=== PATIENT | female | born 1960 | race African-American/Black ===

== ENCOUNTER 2025-07-12 14:57 | Outpatient (AMB) | payer MEDICARE, MEDICAID, SELFPAY ==
--- NOTE | 2025-07-12 14:34 | A.OFFPC_ITS ---
Vital Signs 07/12/25 15:04 Height 5 ft 1 in Weight 186 lb BMI 35.1 BP 116/74 Blood Pressure Location Lt brachial Position Sitting Respiration 16 Pulse 86 Pulse Source Pulse Oximeter Temp 96.8 F Temp Source Temporal Artery Scan Pulse Oximetry (%) 95 Oxygen Delivery Method Room Air Intake Visit Reasons: Re-establish care Chief Cardiopulmonary Technologist Required: No Accompanied by: Self / Same As Patient Allergies celecoxib (From Celebrex) Allergy (Intermediate, Verified 07/12/25 15:07) hives/itching mushroom Allergy (Intermediate, Verified 07/12/25 15:07) hives/itching naproxen (From Naprosyn) Allergy (Intermediate, Verified 07/12/25 15:07) hives/itching NSAIDS (Non-Steroidal Anti-Inflamma Allergy (Intermediate, Verified 07/12/25 15:07) hives/itching tomato Allergy (Intermediate, Verified 07/12/25 15:07) hives/itching Medication List - Last Reconciled 07/12/25 by Mary Jane Nguyen MD albuterol sulfate 90 mcg/actuation (Ventolin HFA) 2 puffs inhalation Q6H PRN amlodipine 10 mg PO DAILY cholecalciferol (vitamin D3) 1,250 mcg PO QWEEK fluticasone furoate-vilanterol 100-25 mcg/dose (Breo Ellipta) 1 ea inhalation D AILY magnesium 250 mg PO DAILY oxycodone 30 mg PO QID PRN topiramate (Topamax) 300 mg PO DAILY Tobacco use date assessed: 07/12/25 Fall risk assessment: 2 + Falls in past year Last assessed Fall Risk: 07/12/25 Dental Screening Dental Screen Date: 07/12/25 Did you have a dental visit in the last 12 months?: Yes Did you have a dental problem in the last 6 months where you did not have access to dental care?: No Was dental information given to patient?: Patient has dentist HPI HPI Comments History of Present Illness Details The patient is a 64-year-old female presenting [facility]. Right knee fracture: Initial ER visit at [facility] in January suggested arthritis. February MRI confirmed fracture after she saw [facility]. Pain persists but not as intense; stiffness noted. Epistaxis: Nosebleeds occurred in January, lasted a week. No further episodes. Asthma with recent exacerbation: Reports of wheezing, difficulty breathing, and tightness. Medications include Ventolin, Breo, and nebulizer. Lacks nebulizer solution. 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 No current symptoms reported. Myofascial pain- established with Dr. Marie at [facility] Anemia- due for repeat cbc HTN-stable Sleep apnea- stable Vitamin d deficiency- uses vitamin d supplement Social History: - Has a supportive family and a new pupp y for companionship Family History: - NONE REPORTED Review of Systems - Musculoskeletal: per hpi - Respiratory: Reports wheezing , chest tightness - General: occasional fatigue Physical Exam - General appearance- NAD - Ear- Right ear cerumen, no erythema- l eft tympanic membrane - Throat- Normal appearance - Chest: wheezing bilaterally - Card: normal s1, s2 - Abdominal: SNTND, +BS Assessment and Plan 1. Asthma exacerbation - Prescribe prednisone taper, continue B reo, and use nebs four times per day 2. . Previous thymic carcinoma - Follow scheduled surveillance plan cirilo Dr. Lopez- thoracic surgeon at [facility] 3. Myofascial pain-continue current rona men 4. HTN- continue amlodipine 5. Anemia-check iron profile, CBC 6. Vitamin d deficiency- obtain bone den sity, check vitamin d levels Discussion Notes We addressed the patient's asthma, discussing the need prednisone taper and neb solution. The patient's experiences with recurrent epistaxis led to discussing home humidity management. Patient Instructions - Use medications as prescribed for asth ma management. - If nosebleeds occur, increase the humi dity in your home. - update office if persistent symptoms a fter prednisone taper [facility] Medical History (Updated 07/12/25 @ 17:18 by Mary Jane Nguyen MD) Thymic carcinoma Myofascial muscle pain Vitamin D deficiency Primary hypertension Asthma, moderate persistent Anemia Sleep apnea Social History Housing: Apartment Patient Tobacco Use Status: Former Tobacco user Years Smoked: quit 2004 service: No Current occupational status: other Questionnaire AUDIT C Alcohol Use Questionnaire (AUDIT-C) 1. How often do you have a drink containing alcohol?: Never 3. How often do you have six or more drinks on one occasion?: Never Total Score: 0 Physical exam (Primary Care) Vital Signs: Last Vital Signs Temp 96.8 F 07/12/25 15:04 Pulse 86 07/12/25 15:04 Resp 16 07/12/25 15:04 BP 116/74 07/12/25 15:04 Pulse Ox 95 07/12/25 15:04 Oxygen Delivery Method Room Air 07/12/25 15:04 BMI result Body Mass Index 35.1 Tobacco/Smoking Status: Tobacco use Status Tobacco use date assessed 07/12/25 07/12/25 14:36 Patient Tobacco Use Status Former Tobacco user 07/12/25 15:14 Coding Level of Care Code Est Pt Level 4 (50836) Complex EM visit Add On G2211 Diagnoses Moderate persistent asthma with acute exacerbation J45.41 Asthma complication type: with acute exacerbation Myofascial muscle pain M79.18 Primary hypertension I10 Anemia, unspecified type D64.9 Anemia type: unspecified type Vitamin D deficiency E55.9 Thymic carcinoma C37 Assessment & Plan Assessment & Plan (1) Asthma, moderate persistent: Code(s): J45.40 - Moderate persistent asthma, uncomplicated Category: Medical Qualifiers: Asthma complication type: with acute exacerbation Qualified Code(s): J45.41 - Moderate persistent asthma with (acute) exacerbation (2) Myofascial muscle pain: Code(s): M79.18 - Myalgia, other site Category: Medical (3) Primary hypertension: Code(s): I10 - Essential (primary) hypertension Category: Medical (4) Anemia: Code(s): D64.9 - Anemia, unspecified Category: Medical Qualifiers: Anemia type: unspecified type Qualified Code(s): D64.9 - Anemia, unspecified (5) Vitamin D deficiency: Code(s): E55.9 - Vitamin D deficiency, unspecified Category: Medical (6) Thymic carcinoma: Code(s): C37 - Malignant neoplasm of thymus Category: Medical Plan Plan - As outlined in assessment and plan above - Complete prednisone taper, use nebulizer solution - get fasting labs Orders: Orders Comprehensive Met. Panel Today D64.9 - Anemia, unspecified, E55.9 - Vitamin D deficiency, unspecified, G47.30 - Sleep apnea, unspecified, I10 - Essential (primary) hypertension, J45.40 - Moderate persistent asthma, uncomplicated Ferritin Today D64.9 - Anemia, unspecified, E55.9 - Vitamin D deficiency, unspecified, G47.30 - Sleep apnea, unspecified, I10 - Essential (primary) hypertension, J45.40 - Moderate persistent asthma, uncomplicated IRON PROFILE Today D64.9 - Anemia, unspecified, E55.9 - Vitamin D deficiency, unspecified, G47.30 - Sleep apnea, unspecified, I10 - Essential (primary) hypertension, J45.40 - Moderate persistent asthma, uncomplicated Magnesium Today D64.9 - Anemia, unspecified, E55.9 - Vitamin D deficiency, unspecified, G47.30 - Sleep apnea, unspecified, I10 - Essential (primary) hypertension, J45.40 - Moderate persistent asthma, uncomplicated Vitamin D 25-OH Total Today D64.9 - Anemia, unspecified, E55.9 - Vitamin D d eficiency, unspecified, G47.30 - Sleep apnea, unspecified, I10 - Essential (primary) hypertension, J45.40 - Moderate persistent asthma, uncomplicated Complete Blood Count Auto Diff Today D64.9 - Anemia, unspecified, E55.9 - Vitamin D deficiency, unspecified, G47.30 - Sleep apnea, unspecified, I10 - Essential (primary) hypertension, J45.40 - Moderate persistent asthma, un complicated Microalbumin, Random (w Creat) Today D64.9 - Anemia, unspecified, E55.9 - Vitamin D deficiency, unspecified, G47.30 - Sleep apnea, unspecified, I10 - Essential (primary) hypertension, J45.40 - Moderate persistent asthma, uncomplicated Vitamin B12 Today D64.9 - Anemia, unspecified, E55.9 - Vitamin D deficiency, unspecified, G47.30 - Sleep apnea, unspecified, I10 - Essential (primary) hypertension, J45.40 - Moderate persistent asthma, uncomplicated XR DEXA axial skeleton Today Z78.0 - Asymptomatic menopausal state Medications: New prednisone 4 tabs x 3 days, 3 tabs x 3 days, 2 tabs x 3 days, 1 tab x 3 days 30 tabs 0RF albuterol sulfate 2.5 mg (3 mL) inhalation Q4-6H PRN 180 mL 11RF shortness of breath or wheezing mupirocin 2% (Centany) 1 appl topical TID 22 grams 3RF
[2025-07-12 15:04] VITALS: BP 116/74; PULSE 86; RESP 16; TEMP 36; O2SAT 95; BMI 35.1
== END 2025-07-12 16:02 | disposition home or self-care (01) ==
LOC: HO.HMCHD 14:58
PROVIDERS: PCP Internal Medicine; Visit Provider Internal Medicine
DX: J45.41 Moderate persistent asthma with (acute) exacerbation (principal); M79.18 Myalgia, other site; I10 Essential (primary) hypertension; D64.9 Anemia, unspecified; E55.9 Vitamin D deficiency, unspecified; C37 Malignant neoplasm of thymus

== ENCOUNTER → 2025-07-12 14:57 | Outpatient (BNVA) | payer MEDICARE, MEDICAID, SELFPAY | PROVIDERS: PCP Internal Medicine; Visit Provider Internal Medicine | DX: Z76.89 Persons encountering health services in other specified circumstances (principal); J45.41 Moderate persistent asthma with (acute) exacerbation; M79.18 Myalgia, other site; I10 Essential (primary) hypertension; D64.9 Anemia, unspecified; E55.9 Vitamin D deficiency, unspecified; C37 Malignant neoplasm of thymus; G47.30 Sleep apnea, unspecified | CPT/HCPCS: 99212 ==

== ENCOUNTER 2025-08-29 11:55 | Outpatient (AMB) | payer MEDICARE, MEDICAID, SELFPAY ==
[2025-08-29 12:01] VITALS: BP 139/64; PULSE 86; TEMP 36.6; O2SAT 97; BMI 34.2
--- NOTE | 2025-08-29 12:01 | A.OFFPC_ITS ---
Vital Signs 08/29/25 12:01 Height 5 ft 1 in Weight 181 lb BMI 34.2 BP 139/64 Blood Pressure Location Lt brachial Position Sitting Pulse 86 Pulse Source Pulse Oximeter Temp 97.9 F Temp Source Oral Pulse Oximetry (%) 97 Oxygen Delivery Method Room Air Intake Visit Reasons: EP - Right Knee Discomfort, Edema Accompanied by: Son Allergies celecoxib (From Celebrex) Allergy (Intermediate, Verified 08/29/25 12:02) hives/itching mushroom Allergy (Intermediate, Verified 08/29/25 12:02) hives/itching naproxen (From Naprosyn) Allergy (Intermediate, Verified 08/29/25 12:02) hives/itching NSAIDS (Non-Steroidal Anti-Inflamma Allergy (Intermediate, Verified 08/29/25 12:02) hives/itching tomato Allergy (Intermediate, Verified 08/29/25 12:02) hives/itching Tobacco use date assessed: 07/12/25 Dental Screening Dental Screen Date: 07/12/25 HPI HPI Comments History of Present Illness Details History of Present Illness The patient is a 65 year old female with a past medical history of asthma, thymic carcinoma, hypertension, and sleep apnea presenting for evaluation of unilateral leg swelling and pain. - The patient's leg swelling began last week while she was on vacation. - Initially, the swelling was confined t o her knee, which caused difficulty walking - The swelling has since moved downwards into her lower leg. - She reports pain and a 'hot spot' feel ing in the back of her knee, with difficulty bending it and pain radiating all the way down her leg including the calf. - The patient describes a sensation like a 'rubber band' pulling in the back of her leg. - She recently traveled via a 1 hour and 27-minute plane ride to [place]. - She denies any personal or family hist ory of blood clots. - She denies any other prolonged periods of immobility. - Patient also reports mild shortness of breath, however is unsure if this is due to her underlying asthma and states this is not new. - She denies any chest pain. History of Knee Injury and Arthritis: - In January or February, the patient went to an emergency room for knee pain and was told she had arthritis based on an x-ray. - A subsequent MRI at an orthopedic clin ic revealed fracture. - The injury reportedly occurred when sh e heard a 'crack' while walking up stairs. - She was given a brace but found it dif ficult to use as it kept falling down. Review of Systems Constitutional: Negative for fevers, chills Respiratory: Reports mild shortness. Negative for cough wheezing Cardiac: Negative for chest pain. Reports RLE swelling Musculoskeletal: Reports right knee pain, right calf pain, and right lower extremity swelling. Skin: Negative for rash or wounds Neurological: Negative for numbness, weakness Physical Exam General Appearance: Normal appearance, well developed. No acute distress Head: Normocephalic, atraumatic Cardiac: RRR. No M/R/G Pulmonary: No respiratory distress. Speaking in full sentences. Ronchi noted in RUE, however improves with coughing. No wheezing. Musculoskeletal: Moving all extremities spontaneously and against gravity. +2 pitting edema noted in the RLE from the ankle to above the knee. No swelling or edema noted of the left leg. TTP of the calf. No erythema or open wounds noted. Negative Homans sign Mental Status: Alert and Oriented x 3 Psychiatric: Normal mood. Normal affect. [facility] Medical History (Updated 07/12/25 @ 17:18 by Mary Jane Nguyen MD) Thymic carcinoma Myofascial muscle pain Vitamin D deficiency Primary hypertension Asthma, moderate persistent Anemia Sleep apnea Family History (Updated 07/12/25 @ 17:23 by Mary Jane Nguyen MD) Son Cardiac defibrillator in place Social History Housing: Apartment Patient Tobacco Use Status: Former Tobacco user Years Smoked: quit 2004 service: No Current occupational status: other Physical exam (Primary Care) Vital Signs: Last Vital Signs Temp 97.9 F 08/29/25 12:01 Pulse 86 08/29/25 12:01 BP 139/64 08/29/25 12:01 Pulse Ox 97 08/29/25 12:01 Oxygen Delivery Method Room Air 08/29/25 12:01 BMI result Body Mass Index 34.2 Tobacco/Smoking Status: Tobacco use Status Tobacco use date assessed 07/12/25 08/29/25 12:05 Patient Tobacco Use Status Former Tobacco user 08/29/25 12:05 Coding Diagnoses Swelling of right lower extremity M79.89 Assessment & Plan Assessment & Plan (1) Swelling of right lower extremity: Code(s): M79.89 - Other specified soft tissue disorders Plan Assessment and Plan 1. Unilateral leg swelling and pain - The patient's presentation with acute unilateral right leg swelling, calf pain, and tenderness is concerning for a deep vein thrombosis (DVT) - While other differentials include complications from her prior knee fracture or arthritis, the radiation of pain and swelling to her calf would warrant a RLE ultrasound - A STAT ultrasound of the leg has been scheduled for today at [facility] at 2:30 pm to investigate for a blood clot. - Will follow up with patient regarding results and next steps - Advised prompt medical evaluation if she develops any chest pain or worsening shortness of breath from baseline. Patient was informed and verbally consented to the use of an ambient scribe for clinic note documentation during the visit. Orders: Orders US venous duplex LE RT Today M79.89 - Other specified soft tissue disorders
--- NOTE | 2025-08-29 13:24 | AM.OFFWIN_ITS ---
Intake Vital Signs 08/29/25 12:01 Height 5 ft 1 in Weight 181 lb BMI 34.2 BP 139/64 Blood Pressure Location Lt brachial Position Sitting Pulse 86 Pulse Source Pulse Oximeter Temp 97.9 F Temp Source Oral Pulse Oximetry (%) 97 Oxygen Delivery Method Room Air Intake Visit Reasons: EP - Right Knee Discomfort, Edema Patient Tobacco Use Status: Former Tobacco user Allergies celecoxib (From Celebrex) Allergy (Intermediate, Verified 08/29/25 12:02) hives/itching mushroom Allergy (Intermediate, Verified 08/29/25 12:02) hives/itching naproxen (From Naprosyn) Allergy (Intermediate, Verified 08/29/25 12:02) hives/itching NSAIDS (Non-Steroidal Anti-Inflamma Allergy (Intermediate, Verified 08/29/25 12:02) hives/itching tomato Allergy (Intermediate, Verified 08/29/25 12:02) hives/itching HPI HPI Comments History of Present Illness Details History of Present Illness The patient is a 65 year old female with a past medical history of asthma, thy fabrice carcinoma, hypertension, and sleep apnea presenting for evaluation of unilateral leg swelling and pain. - The patient's leg swelling began last week while she was on vacation. - Initially, the swelling was confined t o her knee, which caused difficulty walking - The swelling has since moved downwards into her lower leg. - She reports pain and a 'hot spot' feel ing in the back of her knee, with difficulty bending it and pain radiating all the way down her leg including the calf. - The patient describes a sensation like a 'rubber band' pulling in the back of her leg. - She recently traveled via a 1 hour and 27-minute plane ride to [place]. - She denies any personal or family hist ory of blood clots. - She denies any other prolonged periods of immobility. - Patient also reports mild shortness of breath, however is unsure if this is due to her underlying asthma and states this is not new. - She denies any chest pain. History of Knee Injury and Arthritis: - In January or February, the patient went to an emergency room for knee pain and was told she had arthritis based on an x-ray. - A subsequent MRI at an orthopedic clin ic revealed fracture. - The injury reportedly occurred when sh e heard a 'crack' while walking up stairs. - She was given a brace but found it dif ficult to use as it kept falling down. Review of Systems Constitutional: Negative for fevers, chills Respiratory: Reports mild shortness. Negative for cough wheezing Cardiac: Negative for chest pain. Reports RLE swelling Musculoskeletal: Reports right knee pain, right calf pain, and right lower extremity swelling. Skin: Negative for rash or wounds Neurological: Negative for numbness, weakness Physical Exam General Appearance: Normal appearance, well developed. No acute distress Head: Normocephalic, atraumatic Cardiac: RRR. No M/R/G Pulmonary: No respiratory distress. Speaking in full sentences. Ronchi noted in RUE, however improves with coughing. No wheezing. Musculoskeletal: Moving all extremities spontaneously and against gravity. +2 pitting edema noted in the RLE from the ankle to above the knee. No swelling or edema noted of the left leg. TTP of the calf. No erythema or open wounds noted. Negative Homans sign Mental Status: Alert and Oriented x 3 Psychiatric: Normal mood. Normal affect. [facility] Medical History (Updated 07/12/25 @ 17:18 by Mary Jane Nguyen MD) Thymic carcinoma Myofascial muscle pain Vitamin D deficiency Primary hypertension Asthma, moderate persistent Anemia Sleep apnea Family History (Updated 07/12/25 @ 17:23 by Mary Jane Nguyen MD) Son Cardiac defibrillator in place Social History Housing: Apartment Patient Tobacco Use Status: Former Tobacco user Years Smoked: quit 2004 service: No Current occupational status: other Physical Exam Vital Signs: Last Vital Signs Temp 97.9 F 08/29/25 12:01 Pulse 86 08/29/25 12:01 BP 139/64 08/29/25 12:01 Pulse Ox 97 08/29/25 12:01 Oxygen Delivery Method Room Air 08/29/25 12:01 BMI result Body Mass Index 34.2 Assessment & Plan Assessment & Plan (1) Swelling of right lower extremity: Code(s): M79.89 - Other specified soft tissue disorders Plan Assessment and Plan 1. Unilateral leg swelling and pain - The patient's presentation with acute unilateral right leg swelling, calf pain, and tenderness is concerning for a deep vein thrombosis (DVT) - While other differentials include complications from her prior knee fracture or arthritis, the radiation of pain and swelling to her calf would warrant a RLE ultrasound - A STAT ultrasound of the leg has been scheduled for today at [facility] at 2:30 pm to investigate for a blood clot. - Will follow up with patient regarding results and next steps - Advised prompt medical evaluation if she develops any chest pain or worsening shortness of breath from baseline. Patient was informed and verbally consented to the use of an ambient scribe for clinic note documentation during the visit. Orders: Orders US venous duplex LE RT Today M79.89 - Other specified soft tissue disorders Coding Level of Care Code Est Pt Level 3 (79348) Diagnoses Swelling of right lower extremity M79.89
== END 2025-08-29 13:00 | disposition home or self-care (01) ==
LOC: HO.HMCWIS 11:55
PROVIDERS: PCP Internal Medicine; Visit Provider Family Medicine
DX: M79.89 Other specified soft tissue disorders (principal)

== ENCOUNTER 2025-08-29 14:06 | Outpatient (REF) | payer MEDICARE, MEDICAID, SELFPAY ==
--- NOTE | ~2025-08-29 | US_ITS ---
EXAMINATION: US TRIPLEX LOWER EXTREMITY, RIGHT CLINICAL INFORMATION: M79.89 - Other specified soft tissue disorders COMPARISON: None available. TECHNIQUE: Color-flow triplex imaging with spectral analysis and compression Doppler were performed on the right lower extremity. FINDINGS: Respiratory variation, normal compression and augmented flow are noted throughout the right lower extremity. The visualized common femoral vein, greater saphenous vein, femoral vein, profunda femoral vein, popliteal vein and midcalf peroneal and posterior tibial venous segments show no evidence of deep venous thrombosis. Contralateral left common femoral vein is patent. Fluid collection in the right popliteal fossa with complex heterogeneous echogenic content measures 5.0 x 1.4 x 3.8 cm. No abnormal vascularity demonstrated with color Doppler evaluation. Soft tissue edema noted throughout the calf, mostly middle-distal segments. US/US venous duplex LE RT IMPRESSION: 1. No evidence of deep venous thrombosis involving the right lower extremity. 2. Soft tissue edema in the calf. 3. Complex appearing Jaquez's cyst measuring up to 5.0 cm. May be sequela from previous superimposed trauma or chronic inflammatory/infectious process. Electronically signed by: Leela Perez MD 08/29/2025 03:09 PM FIORELLA
== END 2025-08-29 14:07 | disposition home or self-care (01) ==
LOC: HO.US 14:06
PROVIDERS: PCP Internal Medicine; Visit Provider Family Medicine
DX: M79.89 Other specified soft tissue disorders (principal)
CPT/HCPCS: 93971; 99212

== ENCOUNTER → 2025-08-29 14:17 | Outpatient (BNV) | payer MEDICARE, MEDICAID, SELFPAY | PROVIDERS: PCP Internal Medicine; Visit Provider Radiology Body Imaging | DX: R60.0 Localized edema (principal) | CPT/HCPCS: 93971 ==